=== PATIENT | female | born 1985 | race African-American/Black ===

== ENCOUNTER 2017-05-01 20:02 | Emergency (ER) | payer BC ==
[2017-05-01] MEDS ORDERED: Acetaminophen 500 MG TAB ONE (20:39)
== END 2017-05-01 20:40 | disposition home or self-care (01) ==
LOC: ERS 20:02
DX: J11.1 Influenza due to unidentified influenza virus with other respiratory manifestations (principal); I10 Essential (primary) hypertension
CPT/HCPCS: 99283

== ENCOUNTER 2023-06-12 08:32 | Emergency (ER) | payer BC ==
[2023-06-12] MEDS ORDERED: LORazepam 2 MG/ML SYR.(CARPUJECT) ONE (09:37)
[2023-06-12] MEDS ORDERED: Ketorolac Tromethamine 30 MG (1 mL) VIAL ONE (09:41)
[2023-06-12] MEDS ORDERED: Meclizine HCl 25 MG TAB ONE (09:41)
[2023-06-12] MEDS ORDERED: Metoclopramide HCl 10 MG (2 mL) VIAL ONE (09:41)
[2023-06-12] MEDS ORDERED: Dexamethasone 10 MG/ML VIAL ONE (09:41)
== END 2023-06-12 10:47 | disposition home or self-care (01) ==
LOC: ERS 08:32
DX: R42 Dizziness and giddiness (principal); H66.91 Otitis media, unspecified, right ear; I10 Essential (primary) hypertension; Z79.899 Other long term (current) drug therapy
CPT/HCPCS: 93005; 96374; 96375; J1100; J1885; J2060; J2765